=== PATIENT | female | born 1945 | race Caucasian/White ===

== ENCOUNTER → 2023-11-15 15:36 | Outpatient (REF) | payer MEDICARE, SELFPAY ==
[2023-11-16 11:03] LABS: Glycohemoglobin (HgbA1c) 8.1 % (4.0-5.6)
== END ==
LOC: REG 15:36
PROVIDERS: ATTENDING PHYSICIAN Family Medicine
DX: E11.9 Type 2 diabetes mellitus without complications (principal)
CPT/HCPCS: 36415; 83036

== ENCOUNTER → 2023-12-02 14:17 | Outpatient (REF) | payer MEDICARE, SELFPAY | LOC: HWRAD 14:17 | PROVIDERS: ATTENDING PHYSICIAN Specialist; FAMILY PHYSICIAN Family Medicine | DX: M19.011 Primary osteoarthritis, right shoulder (principal) | CPT/HCPCS: 73200 ==

== ENCOUNTER 2024-01-03 05:48 | Day surgery (SDC) | payer MEDICARE, SELFPAY ==
--- NOTE | 2023-11-12 12:36 | CM ---
Addendum entered by Nikki Padilla 12/03/23 10:45:
Patient's surgery date has been changed to 01/03/24.
Original Note:
Patient is scheduled for an elective R Reverse TSA on 11/29/23- she is a same day patient. Spoke with patient prior to surgery. Patient had a L TSA at in 2020. Reintroduced role of Orthopedic Navigator. Patient reports that she lives with her
in a multi story home. She has a first floor set up. Currently she functions independently. She has a sling. PCP is Tremayne Paulino.
Discussed orthopedic program and post surgical plans. Patient will return home when directed by surgeon. Reviewed MD follow up and transition to outpatient therapy. Patient is in agreement with tentative plan and states that her will be home
with her and can assist if needed.
Patient will complete online education.
Plan: Orthopedic Navigator will be involved in the care of patient after surgery and will reassess discharge needs at that time.
[2023-11-14 13:10] VITALS: BMI 37.4
[2023-11-14 14:08] LABS: Hematocrit 45.4 % (37.0-47.0); Hemoglobin 14.9 g/dL (12.0-16.0); Mean Corp Hgb Conc. 32.8 g/dL (33.0-37.0); Mean Corpuscular Hgb 28.3 pg (27.0-31.0); Mean Corpuscular Volume 86.3 fL (81.0-99.0); Mean Platelet Volume 11.5 fL (7.4-10.4); Platelet Count 213 10^3/uL (130-400); Red Blood Cell Count 5.26 10^6/uL (4.20-5.40); Red Cell Dist. Width 13.9 % (11.5-14.5); White Blood Cell Count 6.7 10^3/uL (4.8-10.8)
[2023-11-14 14:22] LABS: ALT (SGPT) 25 U/L (0-35); AST (SGOT) 24 U/L (14-36); Albumin 3.8 g/dl (3.5-5.0); Alkaline Phosphatase 91 U/L (38-126); Blood Urea Nitrogen 23 mg/dl (7-17); Calcium 9.6 mg/dl (8.4-10.2); Carbon Dioxide 28 mmol/L (22-30); Chloride 98 mmol/L (98-107); Estimated Creatinine Clearance 73 ml/min; Glucose 148 mg/dl (70-99); Potassium 4.4 mmol/L (3.5-5.1); Sodium 135 mmol/L (135-145); Total Bilirubin 0.5 mg/dl (0.2-1.3); Total Protein 6.4 g/dl (6.3-8.2); eGFR > 60.00
[2023-11-14 14:50] LABS: Glycohemoglobin (HgbA1c) 8.2 % (4.0-5.6)
[2023-11-14 16:51] VITALS: BMI 37.4
--- NOTE | 2023-12-26 08:18 | HPS.HSE ---
Family Physician
-
Family Physician: Tremayne Paulino
Chief Complaint
-
Advanced primary osteoarthritis of the right shoulder. Same-day surgery.
History of Present Illness
The patient is a 78-year-old female presenting today for advanced primary osteoarthritis of the right shoulder. The patient previously underwent an uncomplicated left total shoulder arthroplasty with Dr. Denzel Soriano in October 2020. She
returns to [facility] today with complaints of significant right shoulder pain associated with her osteoarthritis. Her current right shoulder pain is greatly interfering with her activities of daily living and is overall affecting her
quality of life. She has tried and failed multiple conservative treatment measures in the past for her right shoulder pain. These conservative treatment measures include activity modification, physician supervised therapeutic exercises, medical
management with Tylenol, NSAIDs, Tizanidine, and Tramadol, corticosteroid injections, and the application of ice and/or heat. Recent x-ray findings of the right shoulder demonstrated advanced osteoarthritis, [id number], with inferior osteophytes.
She was determined to be in need of a right reverse total shoulder arthroplasty. She denies any current complaints such as chest pain, shortness of breath, palpitations, nausea, vomiting, diarrhea, lightheadedness, dizziness, cough, sore throat, or
fever.
Medical History
Past Medical History
Past Medical History: Reports Other
Additional Past Medical History:
1. Osteoarthritis, status post left total shoulder arthroplasty, 10/2020, by Dr. Denzel Soriano and bilateral total knee arthroplasty, 2011, at [facility].
2. Hypercholesterolemia.
3. Pulmonary embolism, 1970s, treated with Coumadin for 6 months.
4. Usj-[id number] diabetes, A1c 7.2.
5. Gastroesophageal reflux disease.
6. Hiatal hernia.
7. Cholelithiasis, asymptomatic.
8. Fatty liver disease.
9. Diverticulosis.
10. Rectal polyps.
11. Breast cancer, 2018, status post bilateral lumpectomy, radiation, and current hormonal therapy.
12. Basal cell carcinoma, status post excision.
13. Squamous cell carcinoma, status post excision.
14. Multilevel degenerative disc disease.
15. Cervical radiculopathy.
16. Macular degeneration.
17. Osteopenia.
18. Obesity, BMI 37.4.
19. Remote history of tobacco abuse.
20. Cannibis dependence.
Past Surgical History: Reports Other
Additional Past Surgical History:
1. Left total shoulder arthroplasty, 10/2020, by Dr. Denzel Soriano.
2. Bilateral total knee arthroplasty, 2011, at [facility].
3. Microdiscectomy.
4. Bilateral lumpectomy and sentinel node biopsy.
5. Hysterectomy with bilateral salpingectomy.
6. Basal cell carcinoma excision.
7. Squamous cell carcinoma excision.
8. Bilateral cataract extraction.
9. Colonoscopy.
10. Endoscopy.
Social History
Tobacco: Former Smoker (She is a former one pack per day smoker who quit over 60 years ago.)
Alcohol: None
Personal:
Living: Other (The patient lives in a [facility] home with her . She reports that her home has a first-floor main setup.)
Family History
Family History: Not pertinent
Allergies / Home Medications
Allergy/Medication List:
Home medications:
1. Aspirin 325 mg p.o. daily.
2. Atorvastatin 10 mg p.o. every other day.
3. CBD 1 tab p.o. every evening.
4. Cholecalciferol 25 mcg p.o. daily.
5. Cinnamon 1000 mg p.o. daily.
6. Exemestane 25 mg p.o. every evening.
7. Magnesium gluconate 500 mg p.o. daily.
8. Fish oil 1 capsule p.o. daily.
9. Actos 30 mg p.o. daily.
10. Ozempic 1 mg subcutaneous weekly on Mondays.
11. Tizanidine 4 mg p.o. at bedtime as needed.
12. Tramadol 50 mg p.o. at bedtime as needed.
Allergies: Oxycodone (per records; patient denies). Tree nut.
Review of Systems
-
A 12 point ROS was completed and negative except as noted: Yes
Physical Exam
Vital Signs
Blood pressure 117/72. Heart rate 76. Respirations 18. Pulse ox 99% on room air.
Height 5 feet, 3 inches. Weight 95.8 kg. BMI 37.4.
Physical Exam
General: Well Developed, Well Nourished and No Apparent Distress
HEENT: NormoCephalic, Moist mucous membranes, Atraumatic and PERRLA
Respiratory: Clear
Cardiac: Regular Rhythm
GI: Soft, Non Tender, Non Distended and Other (Obese. )
Musculoskeletal: Other (Right shoulder: Active elevation to 40 degrees. External rotation to 10 degrees. Internal rotation to hip pocket. Positive drop arm. )
Skin: Warm and Dry
Neuro: AO x 3 and Nonfocal/grossly intact
Laboratory Results
-
DIAGNOSTIC STUDIES as of 12/26/2023: White blood cell count 5.1. Hemoglobin 14.2. Platelet count 214. Sodium 136. Potassium 4.2. BUN 23. Creatinine 0.7. Glucose 105. Hemoglobin A1c 7.2. Calcium 9.2. AST 23. ALT 21. Albumin 3.7. MRSA screen negative.
EKG 11/14/2023: Normal sinus rhythm.
Impression/Plan
-
CLEARANCES:
1. Primary medical, Tremayne Paulino MD, cleared. Hemoglobin A1c <8.
� � Primary medical phone number: [phone].
2. Dental cleared.
�
IMPRESSION/PLAN:
1. Advanced primary osteoarthritis of the right shoulder in need of a right reverse total shoulder arthroplasty with Dr. Denzel Soriano on 01/03/2024. The benefits and risks of the procedure were explained to the patient. The patient understands these
risks and wishes to proceed.
2. DVT prophylaxis: Aspirin. The patient has a remote history of pulmonary embolism which was an isolated event. She denies any personal history or family history of blood clotting disorders. She utilized Aspirin for DVT prophylaxis after her left
total shoulder arthroplasty and, thankfully, tolerated it well.
3. The patient has stable comorbidities as referenced by her primary care physician and is medically optimized to proceed as a Same-Day Surgery candidate on 01/03/2024. In preparation for her procedure, she has been already been prescribed Oxycodone
5 mg, 1-2 tablet p.o. every 6 hours as needed for moderate-severe post-operative pain. She will also utilize Tylenol 1000 mg p.o. every 6 hours, Gabapentin 300 mg at p.o. at bedtime, and Celebrex 200 mg p.o. daily. Steroids will be avoided due to
her history of diabetes.
4. Nausea/vomiting with general anesthesia: The patient was advised that she could take Zofran the morning of her surgery with a small sip of water.
Patient's phone number: [phone].
Patient's contact (James Zacarias - Spouse): [phone].
[2023-12-26 10:16] LABS: Hematocrit 42.8 % (37.0-47.0); Hemoglobin 14.2 g/dL (12.0-16.0); Mean Corp Hgb Conc. 33.2 g/dL (33.0-37.0); Mean Corpuscular Hgb 28.3 pg (27.0-31.0); Mean Corpuscular Volume 85.4 fL (81.0-99.0); Platelet Count 214 10^3/uL (130-400); Red Blood Cell Count 5.01 10^6/uL (4.20-5.40); Red Cell Dist. Width 13.9 % (11.5-14.5); White Blood Cell Count 5.1 10^3/uL (4.8-10.8)
[2023-12-26 11:15] LABS: ALT (SGPT) 21 U/L (0-35); AST (SGOT) 23 U/L (14-36); Albumin 3.7 g/dl (3.5-5.0); Alkaline Phosphatase 78 U/L (38-126); Blood Urea Nitrogen 23 mg/dl (7-17); Calcium 9.2 mg/dl (8.4-10.2); Carbon Dioxide 29 mmol/L (22-30); Chloride 99 mmol/L (98-107); Estimated Creatinine Clearance 72 ml/min; Glucose 105 mg/dl (70-99); Potassium 4.2 mmol/L (3.5-5.1); Sodium 136 mmol/L (135-145); Total Bilirubin 0.4 mg/dl (0.2-1.3); Total Protein 6.2 g/dl (6.3-8.2); eGFR > 60.00
[2023-12-26 12:47] VITALS: BMI 36.9
[2023-12-26 13:16] LABS: Glycohemoglobin (HgbA1c) 7.2 % (4.0-5.6)
[2023-12-26 15:32] VITALS: BMI 36.9
[2024-01-03] VITALS (14 sets, daily range): BP systolic 87–133; BP diastolic 51–69; BMI 36.9
[2024-01-03 08:52] LABS: Glucose - Point of Care 115 mg/dl (70-99)
[2024-01-03] MEDS: TRANSDERM-SCOP 1 PATCH TRANSDERM (09:02)
[2024-01-03] MEDS: NORMOSOL-R 1000 IV (09:03)
[2024-01-03 12:29] LABS: Glucose - Point of Care 153 mg/dl (70-99)
[2024-01-03] MEDS: COMPAZINE 5 MG IV (12:37)
[2024-01-03] MEDS: DILAUDID 0.25 MG IV (12:49)
[2024-01-03] MEDS: ANCEF 5 IV (14:56)
== END 2024-01-03 15:35 | disposition home or self-care (01) ==
LOC: SDS 05:48
PROVIDERS: ATTENDING PHYSICIAN Specialist; FAMILY PHYSICIAN Family Medicine; OTHER PHYSICIAN Internal Medicine; REFERRING PHYSICIAN Physician Assistant Medical
DX: M19.011 Primary osteoarthritis, right shoulder (principal)
CPT/HCPCS: 23472; C1713; C1776; 36415; 73020; 80053; 82962; 83036; 85027; 87070; 93005

== ENCOUNTER → 2024-07-20 11:38 | Outpatient (REF) | payer MEDICARE, SELFPAY | LOC: HWWDC 11:38 | PROVIDERS: ATTENDING PHYSICIAN Internal Medicine Hematology & Oncology; FAMILY PHYSICIAN Family Medicine | DX: C50.212 Malignant neoplasm of upper-inner quadrant of left female breast (principal); C50.411 Malignant neoplasm of upper-outer quadrant of right female breast; Z79.811 Long term (current) use of aromatase inhibitors | CPT/HCPCS: 77063; 77067 ==

== ENCOUNTER → 2024-09-25 12:56 | Outpatient (REF) | payer MEDICARE, SELFPAY | LOC: HWRCS 12:56 | PROVIDERS: ATTENDING PHYSICIAN Physician Assistant Medical | DX: R60.0 Localized edema (principal) | CPT/HCPCS: 93306 ==

== ENCOUNTER 2024-10-12 14:27 | Outpatient (RCR) | payer MEDICARE, SELFPAY | END 2024-10-12 23:59 | disposition home or self-care (01) | LOC: RPT 14:27 | PROVIDERS: ATTENDING PHYSICIAN Internal Medicine Hematology & Oncology; FAMILY PHYSICIAN Family Medicine | DX: I97.2 Postmastectomy lymphedema syndrome (principal); C50.212 Malignant neoplasm of upper-inner quadrant of left female breast; C50.411 Malignant neoplasm of upper-outer quadrant of right female breast; Z17.0 Estrogen receptor positive status [ER+]; Z73.6 Limitation of activities due to disability; Z79.811 Long term (current) use of aromatase inhibitors | CPT/HCPCS: 97110; 97140; 97162; 97530 ==

== ENCOUNTER 2024-10-26 10:25 | Outpatient (RCR) | payer MEDICARE, SELFPAY | END 2024-10-26 23:59 | disposition home or self-care (01) | LOC: RPT 10:25 | PROVIDERS: ATTENDING PHYSICIAN Internal Medicine Hematology & Oncology; FAMILY PHYSICIAN Family Medicine | DX: I97.2 Postmastectomy lymphedema syndrome (principal); C50.212 Malignant neoplasm of upper-inner quadrant of left female breast; C50.411 Malignant neoplasm of upper-outer quadrant of right female breast; Z17.0 Estrogen receptor positive status [ER+]; Z79.811 Long term (current) use of aromatase inhibitors; Z73.6 Limitation of activities due to disability | CPT/HCPCS: 97110; 97140 ==

== ENCOUNTER → 2025-08-30 11:51 | Outpatient (REF) | payer MEDICARE, SELFPAY | LOC: REG 11:51 | PROVIDERS: ATTENDING PHYSICIAN Physician Assistant Medical; FAMILY PHYSICIAN Family Medicine | DX: J20.9 Acute bronchitis, unspecified (principal); R05.1 Acute cough | CPT/HCPCS: 71046 ==

== ENCOUNTER → 2025-09-06 14:47 | Outpatient (REF) | payer MEDICARE, SELFPAY | LOC: HWWDC 14:47 | PROVIDERS: ATTENDING PHYSICIAN Internal Medicine Hematology & Oncology; FAMILY PHYSICIAN Family Medicine | DX: C50.212 Malignant neoplasm of upper-inner quadrant of left female breast (principal); C50.411 Malignant neoplasm of upper-outer quadrant of right female breast; Z79.811 Long term (current) use of aromatase inhibitors; Z12.31 Encounter for screening mammogram for malignant neoplasm of breast | CPT/HCPCS: 77063; 77067 ==